=== PATIENT | female | born 1970 | race American Indian/Alaskan Native ===

== ENCOUNTER → 2024-06-12 | Outpatient (CLI) | payer MEDICARE, OTHER ==
[~2024-06-12] MED LIST: CIPR500 PO; HYDACE5 PO; LISI5 PO; METR500 PO; PROM25 PO
== END ==
LOC: PLD 13:49 → LAB SHORT 13:49 → LAB 13:49
DX: R21 Rash and other nonspecific skin eruption (principal)
CPT/HCPCS: 88312